=== PATIENT | male | born 1955 | race Caucasian/White ===

== ENCOUNTER 2022-10-03 09:17 | Observation (INO) ==
[2022-10-03 09:53] LABS: Basophils # (auto) 0.02 K/uL (0-0.2); Basophils % (auto) 0.5 %; Eosinophils % (auto) 2.3 %; Hematocrit (blood only) 40.4 % (40.1-51.0); Hemoglobin 14.2 g/dl (14.0-18.0); Lymphocytes # (auto) 1.16 K/uL (1.2-3.4); Lymphocytes % (auto) 27.2 %; Mean Corpuscular Hemoglobin 32.3 pg (25.0-34.0); Mean Corpuscular Hgb Conc 35.1 g/dL (32.0-36.0); Mean Corpuscular Volume 91.8 fL (80.0-100.0); Mean Platelet Volume 10.1 fL (9.4-12.4); Monocytes # (auto) 0.36 K/uL (0.24-0.82); Monocytes % (auto) 8.4 %; Neutrophils # (auto) 2.63 K/uL (1.4-6.5); Neutrophils % (auto) 61.6 %; Platelet Count 141 K/uL (130-400); RDW Coefficient of Variation 11.7 % (11.5-14.5); RDW Standard Deviation 39.2 fL (36.4-46.3); White Blood Count 4.27 K/ul (4.8-10.8)
--- NOTE | 2022-10-03 10:04 | Emergency Department Note ---
Impression & Plan Syncope and collapse ED Provider Note INFORMANT: Patient and ED PROVIDER(S): Esequiel Crhistine MD CHIEF COMPLAINT: Syncope PLAN: Disposition: Admitted Condition: Good Outpatient prescription management: none Referral: None MEDICAL DECISION MAKING: Patient presented for syncopal episode that was sudden onset, while sitting, and there was no prodrome. Orthostatic testing was negative. ECG did not reveal any gross abnormalities. Cardiac monitoring was performed. Patient was noted to have mild bradycardic heart rates however he was not symptomatic with this. His CBC, chemistry, troponin, D-dimer, and Lyme testing were negative. Patient is moderate risk by [place] syncope rule. I did discuss the case with Dr. Johnson of cardiology. In light of the patient's presentation and findings there is concern for possible cardiogenic syncope. He noted that the patient could be monitored and evaluated by Dr. Young from electrophysiology tomorrow. I discussed the case with the admitting hospitalist. Patient was evaluated in the ER and admitted for further management. Triage Nursing notes reviewed and agree them. Vital Signs: reviewed and remarkable for bradycardia Differential diagnosis: Vasovagal event, dehydration, infection, hypoglycemia, electrolyte abnormalities, cardiac sources, intracerebral event, pulmonary embolism, seizure, toxicologic, neurologic, as well as other pathologies. Diagnostics interpreted by me: ECG: Twelve-lead ECG reveals sinus bradycardia with first-degree AV block at 48 bpm. Right bundle branch block. No ST elevation or depression. No significant axis deviation. Cardiac Monitoring: Cardiac monitoring ordered by me: The patient was placed on continuous cardiac monitoring and observed. It revealed a normal sinus bradycardia at 50 beats per minute without ectopy or evidence of dysrhythmia. Imaging studies: Deferred HPI: The patient is a 66 year old male who presents to the Emergency Room with complaints of syncoep. This started 0830 this morning and is described as sudden. The patient also notes the following associated symptoms, brief dizziness. No loss of bowel or bladder. No postictal period or tongue biting. The patient has taken no medication for relieving factors. Current pain is rated as 0/10. Pt denies headache, fevers, chills, diaphoresis, visual changes, neck pain, chest pain, breathing difficulties, nausea, vomiting, abdominal pain, back pain, melena, hematochezia, urinary symptoms, numbness, weakness, lymphadenopathy, rash, or other complaints. ROS: See above HPI for pertinent positives & negatives. A total of 10 systems reviewed and were otherwise negative. PAST MEDICAL HISTORY:See Below , high cholesterol PAST SURGICAL HISTORY:See Below, FAMILY HISTORY:See Below SOCIAL HISTORY:See Below, no smoking HOME MEDICATIONS:See Below ALLERGIES:See Below VITALS:See Below PHYSICAL EXAMINATION: GENERAL: Awake, alert, well-appearing, in no distress HENT: Normocephalic, atraumatic. Oropharynx unremarkable. EYES: Normal conjunctiva. Sclera non-icteric.PERRL, EOMI NECK: Inspection normal. Non-tender. Supple. No nuchal rigidity. FROM. No masses. RESPIRATORY: Clear to auscultation. No wheezes. No rales. Normal respiratory effort. CARDIAC: Bradycardic rate. Normal rhythm. No murmurs. No rubs. Extremities warm and well perfused. Pulses equal. No JVD. GI: Soft, non-distended. No tenderness to palpation. No rebound or guarding. No masses. RECTAL: Deferred. MUSCULOSKELETAL: Atraumatic. Chest examination reveals no tenderness. The back is symmetrical on inspection without obvious abnormality. There is no CVA tenderness to palpation. No joint edema. LOWER EXTREMITIES: Calves are equal size bilaterally and non-tender. No edema. No discoloration. NEURO: Normal sensorium. No sensory or motor deficits noted. CN2-12 intact. speech normal. no drift. SKIN: No rash or jaundice noted. Esequiel Christine MD Past Med/Surg History Medical History (Updated 10/03/22 @ 10:04 by Esequiel Christine MD) History of cataract Surgical History (Updated 06/30/22 @ 09:00 by Marysol Singletary) History of cataract surgery 2016 Family History (Updated 06/30/22 @ 09:01 by Marysol Singletary) Mother Pancreatic cancer Father Diabetes Hypertension Brother Drug abuse Other No family history of adverse response to anesthesia No family history of bleeding disorder Denies family history of Colon cancer Ovarian cancer Prostate cancer Myocardial infarction Breast cancer Social History Smoking Status: Never smoker Second Hand Exposure: No; Hx Alcohol Use: No Hx Substance Use: No (" nothing i want to discuss") Preferred Language: Mongolian Communication Ability: Effective Visual Impairment: No Limitations Hearing Ability: Normal Display Maker Required: No marital status: Single Current Living Situation: Significant Other Current Living Situation Comment: significant other current occupational status: employed current occupation: [employer]CTION [employer] Feels Safe at Home: Yes Childhood Exposure to Second-Hand Smoke: Yes caffeine: Yes Dental Care, Regularly: Yes Physical Activity Frequency: 3-4 Times per Week Physical Activity Frequency Comment: walk Seatbelt Use: always Sunscreen Use: No (stated he is not in the sun) Assistive Devices: Glasses Allergies Allergies Allergy/AdvReac Type Severity Reaction Status Date / Time No Known Drug Allergies Allergy Verified 10/03/22 10:11 Home Meds Previous Rx's Medication Instructions Recorded hydrocortisone acetate 25 mg 25 mg NM BID PRN hemorrhoids #12 ea 05/08/21 rectal suppository (Anucort-HC) atorvastatin 10 mg tablet (Lipitor) 10 mg PO QPM #90 tabs 05/08/22 fluticasone propionate 50 1 spray intranasal BID #15.8 mL 08/10/22 mcg/actuation nasal spray,suspension (Flonase Allergy Relief) triamcinolone acetonide 0.025 % 1 applic topical BID #15 grams 09/08/22 topical cream Results & Data (ED) Vital Signs Vital Signs - 24 hr 10/03/22 09:20 10/03/22 09:38 10/03/22 09:41 Temperature 36.4 C L Temperature Source Oral Pulse Rate - Lying 56 L Pulse Rate - Sitting 52 L Pulse Rate - Standing 54 L Pulse Rate 45 L Pulse Rate [Right Finger] 62 Pulse Rate from SpO2 Sensor Pulse Rhythm Regular Pulse Strength Normal Respiratory Rate 16 20 Respiratory Effort / Characteristics Non-Labored Respiratory Depth Normal Blood Pressure - Lying 107/60 Blood Pressure - Sitting 115/66 Blood Pressure- Standing 111/70 Blood Pressure 128/69 Blood Pressure [Right Arm] 111/70 Blood Pressure Mean 88 Blood Pressure Mean [Right Arm] 83 Blood Pressure Position Sitting Pulse Oximetry 98 97 Oxygen Delivery Method Room Air Room Air Sepsis Recent Fever Within 48 Hours No Sepsis New/Unexplained Change in Mental Status No Sepsis Action Taken by Nursing No Action Required 10/03/22 09:38 10/03/22 09:40 10/03/22 11:50 Temperature Temperature Source Pulse Rate - Lying Pulse Rate - Sitting Pulse Rate - Standing Pulse Rate 54 L 60 45 L Pulse Rate [Right Finger] Pulse Rate from SpO2 Sensor 51 L 62 Pulse Rhythm Pulse Strength Respiratory Rate 16 17 18 Respiratory Effort / Characteristics Respiratory Depth Blood Pressure - Lying Blood Pressure - Sitting Blood Pressure- Standing Blood Pressure 107/60 111/70 113/74 Blood Pressure [Right Arm] Blood Pressure Mean 75 83 87 Blood Pressure Mean [Right Arm] Blood Pressure Position Pulse Oximetry 96 96 96 Oxygen Delivery Method Room Air Room Air Room Air Sepsis Recent Fever Within 48 Hours Sepsis New/Unexplained Change in Mental Status Sepsis Action Taken by Nursing Laboratory Data Result diagrams: 10/03/22 09:44 10/03/22 09:44 Lab Results 10/03/22 10/03/22 10/03/22 Range/Units 09:44 09:44 09:44 WBC 4.27 L (4.8-10.8) K/ul RBC 4.40 L (4.63-6.08) M/uL Hgb 14.2 (14.0-18.0) g/dl Hct 40.4 (40.1-51.0) % MCV 91.8 (80.0-100.0) fL MCH 32.3 (25.0-34.0) pg MCHC 35.1 (32.0-36.0) g/dL RDW Std Deviation 39.2 (36.4-46.3) fL RDW Coeff of Domenic 11.7 (11.5-14.5) % Plt Count 141 (130-400) K/uL MPV 10.1 (9.4-12.4) fL Immature Gran % (Auto) 0.0 % Neut % (Auto) 61.6 % Lymph % (Auto) 27.2 % [place] % (Auto) 8.4 % Eos % (Auto) 2.3 % Baso % (Auto) 0.5 % Neut # (Auto) 2.63 (1.4-6.5) K/uL Lymph # (Auto) 1.16 L (1.2-3.4) K/uL Loup # (Auto) 0.36 (0.24-0.82) K/uL Eos # (Auto) 0.10 (0-0.50) K/uL Baso # (Auto) 0.02 (0-0.2) K/uL Immature Gran # (Auto) 0.00 (0.00-0.02) K/uL D-Dimer < 190 (0-500) ug/L FEU Sodium 139 (136-145) mmol/L Potassium 3.9 (3.5-5.1) mmol/L Chloride 104 (98-107) mmol/L Carbon Dioxide 29 (21-32) mmol/L Anion Gap 6 (3-11) BUN 13 (6-23) mg/dl Creatinine 0.85 (0.6-1.4) mg/dl Est Cr Clr Drug Dosing Not Reportable Est GFR ( Amer) 106.0 ml/min Est GFR (Non-Af Amer) 91.4 ml/min BUN/Creatinine Ratio 15.3 (10-20) Glucose 115 H (70-99(Fasting)) mg/dl Calcium 9.1 (8.5-10.1) mg/dl Total Bilirubin 0.7 (0.2-1.0) mg/dl AST 23 (13-39) U/L ALT 21 (7-52) U/L Alkaline Phosphatase 41 (34-104) U/L Troponin I High Sens 4.1 (0-20) pg/ml Total Protein 6.3 (6.0-8.3) gm/dl Albumin 4.2 (3.4-5.0) gm/dl Globulin 2.1 L (2.5-4.0) gm/dl Albumin/Globulin Ratio 2.0 (0.9-2) Urine Color Urine Appearance (Clear) Urine pH (4.5-7.5) Ur Specific [place] (1.000-1.030) Urine Protein (Negative) Urine Glucose (UA) (Negative) Urine Ketones (Negative) Urine Blood (Negative) Urine Nitrite (Negative) Urine Bilirubin (Negative) Urine Urobilinogen (Negative) Ur Leukocyte Esterase (Negative) Lyme Disease IgG Ab (Negative) Lyme Disease IgM Ab (Negative) SARS-CoV-2, RNA, NAAT (NEGATIVE) 10/03/22 10/03/22 10/03/22 Range/Units 09:44 11:46 11:46 WBC (4.8-10.8) K/ul RBC (4.63-6.08) M/uL Hgb (14.0-18.0) g/dl Hct (40.1-51.0) % MCV (80.0-100.0) fL MCH (25.0-34.0) pg MCHC (32.0-36.0) g/dL RDW Std Deviation (36.4-46.3) fL RDW Coeff of Domenic (11.5-14.5) % Plt Count (130-400) K/uL MPV (9.4-12.4) fL Immature Gran % (Auto) % Neut % (Auto) % Lymph % (Auto) % [place] % (Auto) % Eos % (Auto) % Baso % (Auto) % Neut # (Auto) (1.4-6.5) K/uL Lymph # (Auto) (1.2-3.4) K/uL [place] # (Auto) (0.24-0.82) K/uL Eos # (Auto) (0-0.50) K/uL Baso # (Auto) (0-0.2) K/uL Immature Gran # (Auto) (0.00-0.02) K/uL D-Dimer (0-500) ug/L FEU Sodium (136-145) mmol/L Potassium (3.5-5.1) mmol/L Chloride (98-107) mmol/L Carbon Dioxide (21-32) mmol/L Anion Gap (3-11) BUN (6-23) mg/dl Creatinine (0.6-1.4) mg/dl Est Cr Clr Drug Dosing Est GFR ( Amer) ml/min Est GFR (Non-Af Amer) ml/min BUN/Creatinine Ratio (10-20) Glucose (70-99(Fasting)) mg/dl Calcium (8.5-10.1) mg/dl Total Bilirubin (0.2-1.0) mg/dl AST (13-39) U/L ALT (7-52) U/L Alkaline Phosphatase (34-104) U/L Troponin I High Sens (0-20) pg/ml Total Protein (6.0-8.3) gm/dl Albumin (3.4-5.0) gm/dl Globulin (2.5-4.0) gm/dl Albumin/Globulin Ratio (0.9-2) Urine Color Yellow Urine Appearance Clear (Clear) Urine pH 7.0 (4.5-7.5) Ur Specific [place] 1.006 (1.000-1.030) Urine Protein Negative (Negative) Urine Glucose (UA) Negative (Negative) Urine Ketones Negative (Negative) Urine Blood Negative (Negative) Urine Nitrite Negative (Negative) Urine Bilirubin Negative (Negative) Urine Urobilinogen Negative (Negative) Ur Leukocyte Esterase Negative (Negative) Lyme Disease IgG Ab Negative (Negative) Lyme Disease IgM Ab Negative (Negative) SARS-CoV-2, RNA, NAAT NEGATIVE (NEGATIVE) Discharge Plan Visit Data Chief Complaint: Syncope Stated Complaint: SYNCOPE ED Provider: Esequiel Christine Discharge Problem: Syncope and collapse Forms Stand Alone Forms: [facility] Prescriptions Prescriptions: No Action hydrocortisone acetate [Anucort-HC] 25 mg suppository 25 mg NM BID PRN (Reason: hemorrhoids) Qty: 12 2RF atorvastatin [Lipitor] 10 mg tablet 10 mg PO QPM Qty: 90 3RF fluticasone propionate [Flonase Allergy Relief] 50 mcg/actuation spray,suspension 1 spray intranasal BID Qty: 15.8 8RF triamcinolone acetonide 0.025 % cream 1 applic topical BID Qty: 15 1RF Referrals Referrals: Mike Nance III, CRNP [Primary Care Provider] -
[2022-10-03 10:23] LABS: Alanine Aminotransferase 21 U/L (7-52); Albumin Level 4.2 gm/dl (3.4-5.0); Alkaline Phosphatase 41 U/L (34-104); Anion Gap 6 (3-11); Aspartate Aminotransferase 23 U/L (13-39); BUN Creatinine Ratio 15.3 (10-20); Bilirubin,Total 0.7 mg/dl (0.2-1.0); Blood Urea Nitrogen 13 mg/dl (6-23); Calcium 9.1 mg/dl (8.5-10.1); Carbon Dioxide 29 mmol/L (21-32); Chloride 104 mmol/L (98-107); Est GFR (Non-African American) 91.4 ml/min; Globulin 2.1 gm/dl (2.5-4.0); Glucose 115 mg/dl (70-99(Fasting)); Potassium 3.9 mmol/L (3.5-5.1); Sodium 139 mmol/L (136-145); Total Protein 6.3 gm/dl (6.0-8.3)
[2022-10-03 10:28] LABS: Troponin I High Sensitivity 4.1 pg/ml (0-20)
[2022-10-03 10:41] LABS: D Dimer < 190 ug/L FEU (0-500)
[2022-10-03 11:04] LABS: Lyme Ab IgG w/WB Rflx Negative (Negative); Lyme Ab IgM w/WB Rflx Negative (Negative)
[2022-10-03 12:29] LABS: Appearance Urine Clear (Clear); Bilirubin Urine Negative (Negative); Blood Urine Negative (Negative); Color Urine Yellow; Glucose Urine UA Negative (Negative); Ketones Urine Negative (Negative); Leukocyte Esterase Urine Negative (Negative); Nitrite Urine Negative (Negative); Protein Urine Negative (Negative); Specific Gravity Urine 1.006 (1.000-1.030); Urobilinogen Urine Negative (Negative)
--- NOTE | 2022-10-03 13:38 | History & Physical Report ---
Date of Service October 03, 2022 Assessment & Plan (1) Syncope and collapse: Plan: Patient presents with syncope with brief presyncopal symptoms of dizziness. Patient sustained no injury. Patient has not had issues like this in the past. Patient does not take any cardiac medications. Patient feels that his morning routine was typical for him he woke up around 6:00am drank some coffee took care of his animals and sat down for breakfast when this occurred. Initial evaluation in the ER was unremarkable including a Lyme titer. Patient is EKG shows sinus bradycardia. Patient states he is typically bradycardic but usually in the 50s and 60s. Patient be observed in our facility for additional arrhythmia cardiac consultation echocardiogram and TSH will be checked. The lack of neurological symptoms or postictal phase leads me to believe less this is a central nervous system issue and no imaging of his brain was done. Similarly the patient states he is got a longstanding history of slower heart rate he is very thin although he does not do excessive cardiovascular exercises. Patient will also have orthostatics ordered in the morning History of Present Illness Primary Care Provider: Mike Nance, III, [employer]ENT 66 Who passed out while sitting this morning at 0830 with a brief period of dizziness preceeding. No tremor or shaking. No loss of bowel or bladder. No postictal period or tongue biting. The patient has taken no new medication. Has had no trauma he takes [id number] medications Patient's in the room she said initially she thought he was joking around because he slumped forward he made some growling type noises which may have been snoring respirations his legs twitched a few times but he did not have any convulsive or shaking movements last about a minute he initially began moving about came to and about 30 seconds recognized her asked her what happened. Pt denies headache, fevers, chills, diaphoresis, visual changes, neck pain, chest pain, breathing difficulties, nausea, vomiting, abdominal pain, back pain, melena, hematochezia, urinary symptoms, numbness, weakness, lymphadenopathy, rash, or other complaints. ER contacted Cardiology operations tech, Dr Johnson, who recommended observation and cardiology consultation Allergies Allergy/AdvReac Type Severity Reaction Status Date / Time No Known Drug Allergies Allergy Verified 10/03/22 10:11 Home Medications Medication Instructions Recorded Confirmed Type hydrocortisone acetate 25 mg 25 mg WI BID PRN hemorrhoids #12 ea 08/05/21 12/31/22 Rx rectal suppository (Anucort-HC) atorvastatin 10 mg tablet (Lipitor) 10 mg PO QPM #90 tabs 05/08/22 10/03/22 Rx fluticasone propionate 50 1 spray intranasal BID #15.8 mL 08/10/22 10/03/22 Rx mcg/actuation nasal spray,suspension (Flonase Allergy Relief) triamcinolone acetonide 0.025 % 1 applic topical BID #15 grams 09/08/22 10/03/22 Rx topical cream Past Med/Surg History Medical History (Updated 10/03/22 @ 10:04 by Esequiel Christine MD) History of cataract Surgical History (Updated 06/30/22 @ 09:00 by Marysol Singletary) History of cataract surgery 2016 Family History (Updated 06/30/22 @ 09:01 by Marysol Singletary) Mother Pancreatic cancer Father Diabetes Hypertension Brother Drug abuse Other No family history of adverse response to anesthesia No family history of bleeding disorder Denies family history of Colon cancer Ovarian cancer Prostate cancer Myocardial infarction Breast cancer Social History Smoking Status: Never smoker Second Hand Exposure: No; Hx Alcohol Use: No Hx Substance Use: No (" nothing i want to discuss") Preferred Language: Khmer Communication Ability: Effective Visual Impairment: No Limitations Hearing Ability: Normal Operational Review Sergeant Required: No marital status: Single Current Living Situation: Significant Other Current Living Situation Comment: significant other current occupational status: employed 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[employer] Feels Safe at Home: Yes Childhood Exposure to Second-Hand Smoke: Yes caffeine: Yes Dental Care, Regularly: Yes Physical Activity Frequency: 3-4 Times per Week Physical Activity Frequency Comment: walk Seatbelt Use: always Sunscreen Use: No (stated he is not in the sun) Assistive Devices: Glasses Review of Systems Review of Systems: Mild distress and fatigue no headache, no visual changes no speech or swallowing issues no chest pain, pressure or palpitations no shortness of breath, cough or wheezes no abdominal pain, nausea or vomiting, diarrhea or constipation no dysuria, hematuria or frequency no focal joint pain or swelling no back pain, CVA tenderness or radicular pain no bruising, bleeding or rashes no focal signs of weakness or numbness or altered sensation no complaints of anxiety or depression.. Physical Exam Physical Exam: The patient appeared well nourished and normally developed. Vital signs as documented. Head exam is normocephalic atraumatic Neck is without JVD, thyromegaly, or carotid bruits. Lungs are clear to auscultation, no focal loss of breath sounds Cardiac exam, Rhythm is regular but bradycardic.. No murmurs, rubs or gallops. Abdominal exam reveals normal bowel sounds, soft non tender, no masses Extremities are nonedematous and both pedal pulses are present Neurologic exam is alert and oriented, no focal loss of strength or sensation Skin is without bruises or rashes Psychologically is without concerns for anxiety or depression.. Results & Data Results & Data ([facility]) Vital Signs (Past 12 Hours) Vital Signs Temp Pulse Pulse Resp BP BP Pulse Ox 10/03/22 11:50 45 L 18 113/74 96 10/03/22 09:40 60 17 111/70 96 10/03/22 09:38 54 L 16 107/60 96 10/03/22 09:41 62 20 111/70 97 10/03/22 09:20 97.5 F L 45 L 16 128/69 98 O2 Del Method 10/03/22 11:50 Room Air 10/03/22 09:40 Room Air 10/03/22 09:38 Room Air 10/03/22 09:41 Room Air 10/03/22 09:20 Room Air ECG Additional Comments: Sinus bradycardia without acute ST or T wave changes Code Status & VTE Plan VTE Prophylaxis Plan VTE Prophylaxis will be ordered: Yes PG Care Time/CCT Total # of Minutes Spent Total Time Spent with Patient: Total time spent is greater than 50% in coordination of care (as documented) at patient's floor/unit and/or counseling patient: Coding Level of Care Code INT OBSERVATION CARE 50M LVL 2 Diagnoses Syncope and collapse R55
--- NOTE | 2022-10-03 14:54 | Electrocardiogram Report ---
Test Reason : Blood Pressure : / mmHG Vent. Rate : 048 BPM Atrial Rate : 048 BPM P-R Int : 210 ms QRS Dur : 108 ms QT Int : 448 ms P-R-T Axes : 063 149 073 degrees QTc Int : 400 ms Sinus bradycardia with 1st degree A-V block Right bundle branch block Abnormal ECG No previous ECGs available Confirmed by Herve Johnson ([id number]) on 10/03/2022 2:53:46 PM Referred By: Confirmed By:Herve Johnson
[2022-10-03] MEDS ORDERED: ONDANSETRON INJ 2 MG/ML 2 ML VIAL IV PRN (17:02)
[2022-10-03] MEDS ORDERED: ALUMINUM/MAGNESIUM SUSP 30 ML UDC PO PRN (17:02)
[2022-10-03] MEDS ORDERED: ACETAMINOPHEN 325 MG TAB PO PRN (17:02)
[2022-10-03] MEDS ORDERED: PNEUMOCOCCAL POLYSACCHARIDES 25 MCG/0.5 ML VIAL/SYR IM ONE (19:02)
[2022-10-03] MEDS: FLUTICASONE PROPIONATE NA SPR 16 GM BTL SCH (20:24)
[2022-10-03] MEDS ORDERED: ATORVASTATIN 10 MG TAB PO SCH (21:00)
[2022-10-04 07:27] LABS: BUN Creatinine Ratio 13.8 (10-20); Calcium 9.1 mg/dl (8.5-10.1); Creatinine Clr Calc Pharmacy 84.3 ml/min; Est GFR (Non-African American) 90.6 ml/min; Magnesium 2.1 mg/dl (1.7-2.4); Potassium 4.1 mmol/L (3.5-5.1)
[2022-10-04] MEDS: FLUTICASONE PROPIONATE NA SPR 16 GM BTL SCH (07:54)
--- NOTE | 2022-10-04 09:25 | Cardiology Consultation ---
Date of Consultation October 04, 2022 Assessment & Plan (1) Syncope and collapse: (2) Bradycardia: Plan 1. Syncope: He appears to have had a true loss of consciousness. The duration was brief. Very brief prodrome with no residual symptoms subsequently. This certainly a possibility this represented increased vagal tone especially after a meal. There is no evidence to suggest an arrhythmia was involved although not definitively excluded either. With normal echocardiogram, good exercise tolerance in the absence of known cardiac disease I think he is in a category people were likely to do well regardless of the true etiology. I think he could be safely discharged with a period of home monitoring that I can order through the clinic. This will be delivered through the mail. I will also arrange a follow-up evaluation in a few weeks. 2. Bradycardia: Does have an element of sinus bradycardia and mild conduction disease. However, I do not believe this is a significant deviation from his baseline. He has had some element of bradycardia throughout his admission witho ut recurrent symptoms. He has good exercise tolerance and no symptoms of bradycardia leading up to admission. History of Present Illness Reason for Consultation: Syncope, bradycardia Requesting Physician: Rk Attending Physician: Ever Beckett MD History of Present Illness The patient is a 66-year-old gentleman with a history of hyperlipidemia but no known cardiac disease who experienced an episode of syncope yesterday. The patient states that he has just finished breakfast. He noticed a brief sensation of dizziness and then apparently lost consciousness for less than a minute. The event was witnessed by his in the details confirmed. room. Subsequently the patient felt well. He was actually able to get up and drive himself to the emergency room. He has not been symptomatic since that time. He did not report any additional prodrome. No sense of palpitation. Did not have associated chest discomfort. He was sitting at the time of the event. He cannot recall feeling poorly earlier in the day or earlier that week. Does recall 1 additional episode of syncope that he believes occurred 8 years ago. However, the circumstances a different in that he had just finished exercising and taking a shower. He is an active individual who exercises regularly. He does not report exertional symptoms such as limiting dyspnea or chest pain. He is generally not aware of any palpitations. He is known to have a lower heart rate and has had a lower heart rate for years. He does not keep track of his heart rate at home or when exercising. Allergies Allergy/AdvReac Type Severity Reaction Status Date / Time No Known Drug Allergies Allergy Verified 10/06/22 10:03 Home Medications Medication Instructions Recorded Confirmed Type hydrocortisone acetate 25 mg 25 mg [place] BID PRN hemorrhoids #12 ea 05/08/21 01/12/24 Rx rectal suppository (Anucort-HC) atorvastatin 10 mg tablet (Lipitor) 10 mg PO QPM #90 tabs 05/08/22 10/06/22 Rx fluticasone propionate 50 1 spray intranasal BID #15.8 mL 08/10/22 10/06/22 Rx mcg/actuation nasal spray,suspension (Flonase Allergy Relief) triamcinolone acetonide 0.025 % 1 applic topical BID #15 grams 09/08/22 10/06/22 Rx topical cream Patient History Medical History (Updated 10/04/22 @ 09:28 by Sanket Young MD) History of cataract Surgical History (Updated 06/30/22 @ 09:00 by Marysol Singletary) History of cataract surgery 2016 Family History (Updated 06/30/22 @ 09:01 by Marysol Singletary) Mother Pancreatic cancer Father Diabetes Hypertension Brother Drug abuse Other No family history of adverse response to anesthesia No family history of bleeding disorder Denies family history of Colon cancer Ovarian cancer Prostate cancer Myocardial infarction Breast cancer Social History Smoking Status: Never smoker Second Hand Exposure: No; Hx Alcohol Use: No Hx Substance Use: No Preferred Language: Gambian Communication Ability: Effective Visual Impairment: No Limitations Hearing Ability: Normal Dynamometer Mechanic Required: No Beliefs That Will Affect Care: None marital status: Single Current Living Situation: Spouse Current Living Situation Comment: significant other current occupational status: employed 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 No recent gastrointestinal symptoms. No lower extremity edema. Physical Exam Physical Exam: The patient is alert and oriented. Mood and affect appeared normal. He answered all questions appropriately. HEENT: Pupils are equal and reactive to light and accommodation. Extraocular movements are intact. The sclerae are anicteric. Neuro: Cranial nerves intact Neck: Patient's neck is supple. He has palpable carotid pulses bilaterally without bruits on auscultation. There is no evidence of jugular venous distention. The thyroid is not enlarged. Lungs: Clear to auscultation bilaterally. He has good air movement without use of accessory muscles. No rales wheezes or rhonchi. Cardiac: Heart demonstrates a regular rate and rhythm. Normal S1 and S2. No murmurs on examination. Pulses: The patient has palpable radial pulses bilaterally that are equal in intensity Extremities: There was no evidence of hypoperfusion. There is no cyanosis or clubbing. There is no edema. Skin: I did not appreciate any rashes on examination today. Results & Data ([facility]) Vital Signs (Past 12 Hours) Vital Signs Temp Pulse Pulse Resp BP Pulse Ox O2 Del Method 10/04/22 07:55 36.7 C 64 18 133/73 98 Room Air 10/04/22 03:01 36.7 C 48 L 16 116/63 97 Room Air 10/03/22 22:03 54 L 10/03/22 22:41 36.9 C 52 L 18 109/62 96 Room Air Laboratory Results Abnormal Lab Results 10/03/22 10/03/22 10/03/22 09:44 09:44 09:44 WBC 4.27 L RBC 4.40 L Hgb 14.2 Hct 40.4 MCV 91.8 MCH 32.3 MCHC 35.1 RDW Std Deviation 39.2 RDW Coeff of Domenic 11.7 Plt Count 141 MPV 10.1 Immature Gran % (Auto) 0.0 Neut % (Auto) 61.6 Lymph % (Auto) 27.2 [place] % (Auto) 8.4 Eos % (Auto) 2.3 Baso % (Auto) 0.5 Neut # (Auto) 2.63 Lymph # (Auto) 1.[address] # (Auto) 0.36 Eos # (Auto) 0.10 Baso # (Auto) 0.02 Immature Gran # (Auto) 0.00 D-Dimer < 190 Sodium 139 Potassium 3.9 Chloride 104 Carbon Dioxide 29 Anion Gap 6 BUN 13 Creatinine 0.85 Est Cr Clr Drug Dosing Not Reportable Est GFR ( Amer) 106.0 Est GFR (Non-Af Amer) 91.4 BUN/Creatinine Ratio 15.3 Glucose 115 H Calcium 9.1 Magnesium Total Bilirubin 0.7 AST 23 ALT 21 Alkaline Phosphatase 41 Troponin I High Sens 4.1 Total Protein 6.3 Albumin 4.2 Globulin 2.1 L Albumin/Globulin Ratio 2.0 TSH Urine Color Urine Appearance Urine pH Ur Specific [place] Urine Protein Urine Glucose (UA) Urine Ketones Urine Blood Urine Nitrite Urine Bilirubin Urine Urobilinogen Ur Leukocyte Esterase Lyme Disease IgG Ab Lyme Disease IgM Ab SARS-CoV-2, RNA, NAAT 10/03/22 10/03/22 10/03/22 09:44 11:46 11:46 WBC RBC Hgb Hct MCV MCH MCHC RDW Std Deviation RDW Coeff of Domenic Plt Count MPV Immature Gran % (Auto) Neut % (Auto) Lymph % (Auto) [place] % (Auto) Eos % (Auto) Baso % (Auto) Neut # (Auto) Lymph # (Auto) [place] # (Auto) Eos # (Auto) Baso # (Auto) Immature Gran # (Auto) D-Dimer Sodium Potassium Chloride Carbon Dioxide Anion Gap BUN Creatinine Est Cr Clr Drug Dosing Est GFR ( Amer) Est GFR (Non-Af Amer) BUN/Creatinine Ratio Glucose Calcium Magnesium Total Bilirubin AST ALT Alkaline Phosphatase Troponin I High Sens Total Protein Albumin Globulin Albumin/Globulin Ratio TSH Urine Color Yellow Urine Appearance Clear Urine pH 7.0 Ur Specific [place] 1.006 Urine Protein Negative Urine Glucose (UA) Negative Urine Ketones Negative Urine Blood Negative Urine Nitrite Negative Urine Bilirubin Negative Urine Urobilinogen Negative Ur Leukocyte Esterase Negative Lyme Disease IgG Ab Negative Lyme Disease IgM Ab Negative SARS-CoV-2, RNA, NAAT NEGATIVE 10/04/22 10/04/22 05:30 05:30 WBC RBC Hgb Hct MCV MCH MCHC RDW Std Deviation RDW Coeff of Domenic Plt Count MPV Immature Gran % (Auto) Neut % (Auto) Lymph % (Auto) [place] % (Auto) Eos % (Auto) Baso % (Auto) Neut # (Auto) Lymph # (Auto) [place] # (Auto) Eos # (Auto) Baso # (Auto) Immature Gran # (Auto) D-Dimer Sodium 140 Potassium 4.1 Chloride 106 Carbon Dioxide 30 Anion Gap 4 BUN 12 Creatinine 0.87 Est Cr Clr Drug Dosing 84.3 Est GFR ( Amer) 105.0 Est GFR (Non-Af Amer) 90.6 BUN/Creatinine Ratio 13.8 Glucose 95 Calcium 9.1 Magnesium 2.1 Total Bilirubin AST ALT Alkaline Phosphatase Troponin I High Sens Total Protein Albumin Globulin Albumin/Globulin Ratio TSH 4.306 Urine Color Urine Appearance Urine pH Ur Specific [place] Urine Protein Urine Glucose (UA) Urine Ketones Urine Blood Urine Nitrite Urine Bilirubin Urine Urobilinogen Ur Leukocyte Esterase Lyme Disease IgG Ab Lyme Disease IgM Ab SARS-CoV-2, RNA, NAAT Diagnostic Findings ECG Additional Comments: EKG was obtained emergency room which revealed sinus bradycardia, first-degree AV block and incomplete right bundle-branch block EKG was obtained this morning which revealed sinus bradycardia, 1st degree AV block and a change in the morphology of V1. PG Care Time/CCT Total # of Minutes Spent Total Time Spent with Patient: Total time spent is greater than 50% in coordination of care (as documented) at patient's floor/unit and/or counseling patient: Coding Level of Care Code 12248 INT INP/OBS CARE 3/75MIN Diagnoses Syncope and collapse R55 Bradycardia R00.1
--- NOTE | 2022-10-04 11:02 | XCELERA ---
[id number]
--- NOTE | 2022-10-04 19:25 | Discharge Summary ---
Date of Service October 04, 2022 Admission HPI Per Admitting Provider 66 Who passed out while sitting this morning at 0830 with a brief period of dizziness preceeding. No tremor or shaking. No loss of bowel or bladder. No postictal period or tongue biting. The patient has taken no new medication. Has had no trauma he takes [id number] medications Patient's in the room she said initially she thought he was joking around because he slumped forward he made some growling type noises which may have been snoring respirations his legs twitched a few times but he did not have any convulsive or shaking movements last about a minute he initially began moving about came to and about 30 seconds recognized her asked her what happened. Pt denies headache, fevers, chills, diaphoresis, visual changes, neck pain, chest pain, breathing difficulties, nausea, vomiting, abdominal pain, back pain, melena, hematochezia, urinary symptoms, numbness, weakness, lymphadenopathy, rash, or other complaints. ER contacted Cardiology immigration coordinator, Dr Johnson, who recommended observation and cardiology consultation Principal Diagnosis Syncope and collapse Discharge Exam Constitutional: Well-developed, well-nourished patient, in no acute distress, pleasant. Vitals as above. HEENT: No scleral injection or discharge. Clear oropharynx without exudate. Neck: Supple without lymphadenopathy or thyromegaly. Trachea midline. Lungs: Clear to auscultation bilaterally with good effort. Cardiac: Normal rhythm. No murmurs.No extremity edema. 2+ distal peripheral pulses. Abdomen:Bowel sounds present. Soft and nondistended. No guarding or rebound tenderness. No hepatosplenomegaly. MSK: No cyanosis or clubbing. Extremities motor strength 5/5. Skin: No rashes, warm, dry. Neurologic: Grossly intact cranial nerves. Discharge Data Allergies Allergy/AdvReac Type Severity Reaction Status Date / Time No Known Drug Allergies Allergy Verified 10/03/22 10:11 Consultations 10/03/22 13:31 ED Decision to Admit Stat 10/03/22 17:02 Consult Cardiology Routine Hospital Course (1) Syncope and collapse: Patient presents with syncope with brief presyncopal symptoms of dizziness. Patient sustained no injury. Patient has not had issues like this in the past. Patient does not take any cardiac medications. Patient feels that his morning routine was typical for him he woke up around 6:00am drank some coffee took care of his animals and sat down for breakfast when this occurred. Initial evaluation in the ER was unremarkable including a Lyme titer. Patient is EKG shows sinus bradycardia. Patient states he is typically bradycardic but usually in the 50s and 60s. Patient had no further arrhythmia over the course of hospital stay His hemodynamics remained stable Cardiology consultation obtained an echocardiogram did not reveal any structural abnormalities Based on cardiology recommendation patient could be followed as an outpatient for cardiac follow-up Patient advised to have neurology inpatient input but patient prefers to obtain it as an outpatient risk versus benefits explained Patient anxious to go home gave instructions to follow-up with neurology Total Time Total Time Spent Total Time Spent (In Minutes): 35 Discharge Plan Discharge Items Patient Disposition: Home - Self-Care Reason For Visit: SYNCOPE Discharge Diagnosis: syncope Activity: Per Instructions section Lifting: No more than 10 pounds and Wait until after follow-up appointment Bathing: No limitations Sexual Activity: Wait until after follow-up appointment Driving/Machine Use: No limitations Non-emergency contact: Primary Care Provider Call non-emergency contact if: your symptoms worsen Follow-up/Referrals: Mike Nance III, CRNP [Primary Care Provider] - 10/19/22 4:00 pm Diet: Heart Healthy Addtl Attending Provider Instructions: f/u cardiology dr young f/u outpt neurology [facility] [place] Billy Bravo(pt wants to follow as outpt and does not want to wait) Pending Studies at Discharge: No Stand-Alone Forms: [employer], Smoking Cessation Medications and DC Order Prescriptions: Continued hydrocortisone acetate [Anucort-HC] 25 mg suppository 25 mg [place] BID PRN (Reason: hemorrhoids) Qty: 12 2RF atorvastatin [Lipitor] 10 mg tablet 10 mg PO QPM Qty: 90 3RF fluticasone propionate [Flonase Allergy Relief] 50 mcg/actuation spray,suspension 1 spray intranasal BID Qty: 15.8 8RF triamcinolone acetonide 0.025 % cream 1 applic topical BID Qty: 15 1RF Discharge Orders: Discharge Order (Routine); Ordered 10/04/22 Ordered By: Ever Villafuerte/Other Patient Handouts: Causes of Syncope Admission Data Admit Date/Time: 10/03/22 13:33 Attending Provider: Ever Beckett Admit Provider: Iban Beckman Primary Care Provider: Mike Nance III Other Providers: Iban Beckman ; Sanket Young Other Interventions: Discharge Summary Assessment (RN) Last Done: 10/04/22 13:22 Coding Level of Care Code D/C DAY MANAGEMENT >30 MINS Diagnoses Syncope and collapse R55
--- NOTE | 2022-10-05 18:42 | Electrocardiogram Report ---
Test Reason : Blood Pressure : / mmHG Vent. Rate : 048 BPM Atrial Rate : 048 BPM P-R Int : 208 ms QRS Dur : 106 ms QT Int : 454 ms P-R-T Axes : 072 124 034 degrees QTc Int : 405 ms Sinus bradycardia Left posterior fascicular block Abnormal ECG When compared with ECG of 03-OCT-2022 09:28, No significant change was found Confirmed by Sanket Young ([id number]) on 10/05/2022 6:42:01 PM Referred By: REFERRED SELF Confirmed By:David Young
== END 2022-10-04 15:20 | disposition home or self-care (01) ==
LOC: EDINP 09:17 → ED 09:17 → SUATTDRO 13:33 → 2E 18:35